=== PATIENT | female | born 1990 | race Caucasian/White ===

== ENCOUNTER 2018-05-11 21:27 | Inpatient (IN) | payer OTHER ==
[2018-05-11 22:11] VITALS: BMI 29.0
--- NOTE | 2018-05-12 00:26 | PRG ---
DATE OF SERVICE: 05/11/2018 PRIMARY OB: Rosa Duncan MD. CHIEF COMPLAINT: Abdominal pain. HISTORY OF PRESENT ILLNESS: The patient is a 27-year-old, G1, P0 female, with an intrauterine at 39 weeks and 2 days, presenting with abdominal pain that began several hours prior to presentation and is here for evaluation. The patient reports that she was checked about 35 weeks gestation and was noted to be 2 cm dilated. She denies any leakage of fluid or vaginal bleeding. She denies any fall or trauma, headache, chest pain, shortness of breath, fever, nausea, vomiting, diarrhea, constipation, hip problems, knee problems, muscle weakness, skin rash, or urinary urgency. PAST MEDICAL HISTORY: Noncontributory. PAST SURGICAL HISTORY: She has had LASIK and wisdom teeth extraction. SOCIAL HISTORY: Denies drug, alcohol, or tobacco use. ALLERGIES: LATEX AND MUCINEX. OB LABORATORY DATA: Blood type is A positive. Antibody screen is negative. She is rubella immune. GBS is negative. Syphilis is nonreactive in the first trimester. HIV is nonreactive in the third trimester and first trimester. Hepatitis B surface antigen is nonreactive in the first trimester. REVIEW OF SYSTEMS: Per HPI. PHYSICAL EXAMINATION: VITAL SIGNS: Initial blood pressure is 147/91, heart rate of 108, respiratory rate of 20. After 20 minutes or so, blood pressure and pulse have both come down to 137/85 and pulse of 96, respiratory rate of 20 to 22, temperature 98.7, saturating 98% on room air. GENERAL: She appears to be in some distress with contractions. However, she is alert and oriented, cooperative and pleasant to interact with. HEAD: Normocephalic atraumatic. LUNGS: Clear to auscultation bilaterally. HEART: Regular rate and rhythm. ABDOMEN: Soft, gravid, and nontender in between contractions. EXTREMITIES: Nontender, nonedematous. : Per nursing staff, cervix is 3, 80, and -2 station, changed from 2 and 70 four weeks ago. heart tracing and NST performed for abdominal pain and . Baseline is noted to be in the 150s with moderate long-term variability, positive accelerations. Tocometer showing contractions, irregular, but about every 2 to 3 minutes. ASSESSMENT AND PLAN: The patient is a 27-year-old, G1, P0 female with an intrauterine at 39 weeks and 2 days, here for evaluation of labor. The patient has a fetus with reactive NST. The patient may be experiencing latent labor at this time. The patient will be here for about an hour or 2 hours at which time we will re-evaluate for cervical change. Should the patient have significant cervical change, we will consider observation overnight or admission for expectant management at which time we will notify her primary provider, Dr. Rosa Duncan. Should she not make any change, the patient will be discharged to home and follow up with her OB as scheduled and will be given term labor precautions. Job ID: [id number]
[2018-05-12] MEDS ORDERED: Oxytocin 10 UNITS/ML VIAL ONE (01:34)
[2018-05-12] MEDS ORDERED: Lidocaine 1% (PF) 30 ML VIAL ONE (01:38)
[2018-05-12] MEDS ORDERED: HYDROcodone/Acetaminophen 5/325 mg Tablet PO PRN ×2 (01:42→05:09)
[2018-05-12] MEDS ORDERED: NS / Oxytocin 40 units/1000ml 1,000 ML IV PRN (01:42)
[2018-05-12] MEDS ORDERED: Lidocaine 1% (PF) 30 ML VIAL SC PRN (01:42)
[2018-05-12] MEDS ORDERED: Ondansetron PF 4 MG/2 ML Vial IVP PRN ×2 (01:42→05:09)
[2018-05-12] MEDS ORDERED: Ibuprofen 800 MG TAB PO PRN (01:42)
[2018-05-12] MEDS ORDERED: Lactated Ringer's 1,000 ML IV SCH ×2 (01:45)
[2018-05-12 02:05] LABS: Hemoglobin 12.8 g/dL (12.0-16.0); Mean Corpuscular HGB CONC 33.5 g/dL (32.0-36.0); Mean Corpuscular Volume 95.5 fL (78.0-98.0); Mean Platelet Volume 8.4 fL (7.4-10.4); Platelet Count 290 thou/uL (130-400); RBC Distribution Width 12.6 % (11.5-14.5); Red Blood Cell (RBC) Count 4.01 mill/uL (4.20-5.40); White Blood Cell (WBC) Count 14.6 thou/uL (4.8-10.8)
[2018-05-12 02:27] LABS: HBSAg Index 0.23 S/CO (0-0.99); Hep B Surf Ag Non-Reactive S/CO (NonReactive)
[2018-05-12] MEDS ORDERED: Bisacodyl 10 MG SUPP PR PRN (05:09)
[2018-05-12] MEDS ORDERED: Preparation H Ointment 28 GM TUBE PR PRN (05:09)
[2018-05-12] MEDS ORDERED: Milk Of Magnesia 30 ML UDCUP PO PRN (05:09)
[2018-05-12] MEDS ORDERED: NS / Oxytocin 40 units/1000ml 1,000 ML IV SCH (05:09)
[2018-05-12] MEDS ORDERED: diphenhydrAMINE 25 MG CAP PO PRN (05:09)
[2018-05-12] MEDS ORDERED: Benzocaine/Menthol 20-0.5% 60 ML CAN TOP PRN (05:09)
[2018-05-12] MEDS ORDERED: Lanolin Ointment 7 GM TUBE TOP PRN (05:09)
[2018-05-12] MEDS ORDERED: Promethazine HCl 25 MG/ML VIAL IM PRN (05:09)
[2018-05-12] MEDS ORDERED: Acetaminophen/Codeine 30-300mg Tablet PO PRN (05:09)
[2018-05-12 05:47] LABS: Syphilis Antibody Nonreactive (Nonreactive); Syphilis Antibody Index 0.03 S/CO (<1.00 Non-Reactive)
[2018-05-12] MEDS: Ibuprofen 800 MG TAB PO SCH ×3 (06:53→22:15)
[2018-05-12] MEDS: Prenatal Vitamin 1 TAB PO SCH (09:25)
[2018-05-12] MEDS: Docusate Calcium (SURFAK) 240 MG CAP PO SCH ×2 (09:27→22:15)
[2018-05-12] MEDS: Ferrous Sulfate 325 MG TAB PO SCH ×2 (11:02→18:06)
[2018-05-13] MEDS: Ibuprofen 800 MG TAB PO SCH ×2 (03:13→15:26)
[2018-05-13 07:40] VITALS: BP 111/66; TEMP 97.9
[2018-05-13] MEDS: Ferrous Sulfate 325 MG TAB PO SCH ×2 (08:52→15:26)
[2018-05-13] MEDS: Docusate Calcium (SURFAK) 240 MG CAP PO SCH (08:53)
[2018-05-13] MEDS: Prenatal Vitamin 1 TAB PO SCH (08:56)
--- NOTE | 2018-05-13 15:54 | PDOC.PP ---
Post Progress Note Post Day #: 1 Subjective: Doing well. Baby remains in NICU. Pumping. Wants to go home - feels like there is not much she can do for baby here. PO intake tolerated: yes Flatus: yes Ambulation: yes Vital Signs (12 hours) Temp Pulse Resp BP Pulse Ox 05/13/18 07:39 97.9 F 73 20 111/66 96 Weight Weight 149 lb - Physical Examination General: NAD Cardiovascular: no m/r/g, RRR Respiratory: clear to auscultation bilaterally, non-labored breathing Abdominal: + bowel sounds, lochia, no distention, appropriately TTP Result Diagrams: 05/12/18 00:50 Additional Labs: Post Labs Blood Type A POSITIVE 05/12/18 00:50 Hep Bs Antigen Non-Reactive S/CO (NonReactive) 05/12/18 00:50 (1) Vaginal delivery Code(s): O80 - ENCOUNTER FOR FULL-TERM UNCOMPLICATED DELIVERY Status: Acute - Assessment/Plan Routine PP care Wants to go home D/C home today F/U in 6 weeks with Tamela Chang
== END 2018-05-13 18:00 | disposition home or self-care (01) | DRG 807 ==
LOC: L&D/OP 21:27 → L&D-LIB 05-12 00:24 → 3SW 05-12 05:55
PROVIDERS: ADMIT Family Medicine; ATTEND Family Medicine
PROC: 10E0XZZ Delivery of Products of Conception, External Approach (ICD-10-PCS; principal; 2018-05-12)
DX: O62.3 Precipitate labor (principal); Z37.0 Single live birth; O76 Abnormality in fetal heart rate and rhythm complicating labor and delivery; Z91.040 Latex allergy status; Z88.8 Allergy status to other drugs, medicaments and biological substances; Z98.890 Other specified postprocedural states; Z3A.39 39 weeks gestation of pregnancy
CPT/HCPCS: 85027; 86780; 86850; 86900; 86901; 87340; 99285; J2001; J2590

== ENCOUNTER 2019-11-20 18:21 | Inpatient (IN) | payer OTHER ==
[2019-11-20] MEDS ORDERED: Ondansetron PF 4 MG/2 ML Vial IVP PRN ×2 (18:46→21:42)
[2019-11-20] MEDS ORDERED: NS / Oxytocin 40 units/1000ml 1,000 ML IV PRN (18:46)
[2019-11-20] MEDS ORDERED: Ibuprofen 800 MG TAB PO PRN (18:46)
[2019-11-20] MEDS ORDERED: hydrALAZINE 20 MG/ML VIAL SLOW IVP PRN ×2 (18:46→21:42)
[2019-11-20] MEDS ORDERED: Lidocaine 1% (PF) 30 ML VIAL SC PRN (18:46)
[2019-11-20 19:00] VITALS: BMI 27.3
[2019-11-20] MEDS ORDERED: Oxytocin 10 UNITS/ML VIAL ONE (19:00)
[2019-11-20] MEDS ORDERED: Lactated Ringer's 1,000 ML IV SCH ×2 (19:00→20:00)
--- NOTE | 2019-11-20 19:34 | PDOC.LDHP ---
Labor and Delivery H&P Chief complaint: contractions HPI: [facility] and she went [facility]. Today at 1600 she started hernan strongly again. She denies SROM. Affirms movement. Current gestational age (weeks): 40 Due date: 11/21/19 Dating criteria: last menstrual period Grav: 2 Para: 1 OB History Details: Current complications: none Abnormal US findings: No Current medications: pre- vitamins Allergies/Adverse Reactions: Allergies Allergy/AdvReac Type Severity Reaction Status Date / Time guaifenesin [From Mucinex] Allergy Hives Verified 05/11/18 21:58 latex Allergy Hives Verified 05/11/18 21:58 Social history: none - Physical Exam Vital signs reviewed and normal: yes General: breathing through contractions Lungs: nonlabored breathing Abdomen: gravid FHT: category 1 - Vaginal Exam cm dilated: 8 Effacement: 100% Station: 0
--- NOTE | 2019-11-20 19:40 | PDOC.OPDEL ---
OB Operative/Delivery Note Delivery Dr/Surgeon: Elena Zepeda CNM Pre-Delivery Diagnosis: active labor Procedure/Post Delivery Dx: spontaneous vaginal delivery Anesthesia: none - Findings A Sex: male Weight: 8 lb - 1 min: 8 - 5 min: 9 - Additional Findings/Plan Placenta delivered: spontaneous Repaired Obstetrical Laceration: none Compilations/Other Findings: None. Post delivery plan: routine recovery
[2019-11-20 20:25] LABS: Hemoglobin 12.2 g/dL (12.0-16.0); Mean Corpuscular HGB CONC 34.3 g/dL (32.0-36.0); Mean Corpuscular Hemoglobin 32.6 pg (27.0-31.0); Mean Platelet Volume 8.2 fL (7.4-10.4); Platelet Count 237 thou/uL (130-400); RBC Distribution Width 12.1 % (11.5-14.5); Red Blood Cell (RBC) Count 3.73 mill/uL (4.20-5.40); White Blood Cell (WBC) Count 17.8 thou/uL (4.8-10.8)
[2019-11-20 21:04] LABS: Syphilis Antibody Nonreactive (Nonreactive); Syphilis Antibody Index 0.03 S/CO (<1.00 Non-Reactive)
[2019-11-20] MEDS ORDERED: Milk Of Magnesia 30 ML UDCUP PO PRN (21:42)
[2019-11-20] MEDS ORDERED: Lanolin Ointment 7 GM TUBE TOP PRN (21:42)
[2019-11-20] MEDS ORDERED: Methylergonovine 0.2 MG/ML VIAL IM PRN (21:42)
[2019-11-20] MEDS ORDERED: Benzocaine-Menthol 82.5 ML CAN TOP PRN (21:42)
[2019-11-20] MEDS ORDERED: Bisacodyl 10 MG SUPP PR PRN (21:42)
[2019-11-20] MEDS ORDERED: HYDROcodone/Acetaminophen 5/325 mg Tablet PO PRN ×2 (21:42)
[2019-11-20] MEDS ORDERED: Misoprostol 200 MCG TAB VAG PRN (21:42)
[2019-11-20] MEDS ORDERED: NS / Oxytocin 40 units/1000ml 1,000 ML IV SCH (21:45)
[2019-11-20] MEDS ORDERED: Docusate Calcium (SURFAK) 240 MG CAP PO SCH (21:45)
[2019-11-20 23:06] LABS: HBSAg Index 0.19 S/CO (0-0.99); Hep B Surf Ag Non-Reactive S/CO (NonReactive)
[2019-11-20] MEDS: Ibuprofen 800 MG TAB PO SCH (23:58)
[2019-11-21] MEDS: Prenatal Vitamin 1 TAB PO SCH (08:16)
[2019-11-21] MEDS: Ibuprofen 800 MG TAB PO SCH ×3 (08:16→21:47)
[2019-11-21] MEDS: Docusate Calcium (SURFAK) 240 MG CAP PO SCH ×2 (08:17→21:47)
[2019-11-21] MEDS: Ferrous Sulfate 325 MG TAB PO SCH ×2 (08:17→18:58)
[2019-11-21] MEDS ORDERED: Adacel (T-DAP) 0.5 ML SYRINGE IM ONE (09:00)
[2019-11-21 12:31] LABS: SARS-CoV-2 MS2 Positive; SARS-CoV-2 N Gene Negative; SARS-CoV-2 S Gene Negative; SARS-CoV-2 by NAA Not Detected (NotDetected); SARS-CoV-2 orf1ab Negative
[2019-11-22] MEDS: Ibuprofen 800 MG TAB PO SCH (04:16)
[2019-11-22 08:06] VITALS: BP 123/80; TEMP 98.9
[2019-11-22] MEDS: Prenatal Vitamin 1 TAB PO SCH (09:58)
[2019-11-22] MEDS: Docusate Calcium (SURFAK) 240 MG CAP PO SCH (10:00)
[2019-11-22] MEDS: Ferrous Sulfate 325 MG TAB PO SCH (10:00)
== END 2019-11-22 11:05 | disposition home or self-care (01) | DRG 807 ==
LOC: L&D/OP 18:21 → L&D 19:43 → 3SW 22:44
PROVIDERS: ADMIT Student in an Organized Health Care Education/Training Program; ATTEND Student in an Organized Health Care Education/Training Program
PROC: 10E0XZZ Delivery of Products of Conception, External Approach (ICD-10-PCS; principal; 2019-11-20)
DX: O80 Encounter for full-term uncomplicated delivery (principal); Z37.0 Single live birth; Z3A.40 40 weeks gestation of pregnancy; Z88.8 Allergy status to other drugs, medicaments and biological substances; Z91.040 Latex allergy status
CPT/HCPCS: 36415; 85027; 86780; 86850; 86900; 86901; 87340; 87635; 99285; J2590; U0003